=== PATIENT | female | born 1990 | race Caucasian/White ===

== ENCOUNTER 2023-11-21 23:23 | Emergency (ER) | payer MEDICAID ==
[~2023-11-21] VITALS: Ht 154.9 cm; Wt 70.0 kg
[2023-11-21 23:25] VITALS: BP 93/58; PULSE 75; RESP 15; TEMP 98.1
[2023-11-22] MEDS: ACETAMINOPHEN/CODEINE 300-30 MG TABLET PO ONE (00:40)
[2023-11-22] MEDS: KETOROLAC TROMETHAMINE 60 MG/2 ML VIAL IM ONE (00:40)
== END 2023-11-22 02:02 | disposition left against medical advice (07) ==
LOC: EMS 23:24
DX: N94.6 Dysmenorrhea, unspecified (principal); R10.2 Pelvic and perineal pain
CPT/HCPCS: 99283; 96372; J1885